=== PATIENT | male | born 1990 | race Caucasian/White ===

== ENCOUNTER 2020-07-16 21:17 | Emergency (ER) | payer SELFPAY ==
[2020-07-16] MEDS ORDERED: Sulfamethoxazole/Trimethoprim 800-160 MG Tab PO ONE (22:30)
[2020-07-16] MEDS ORDERED: Cephalexin 500 MG Cap PO ONE (22:30)
--- NOTE | 2020-07-16 22:35 | EDM.PDOC ---
ED HPI GENERAL MEDICAL PROBLEM - General Chief Complaint: Skin Complaint Stated Complaint: SKIN Time Seen by Provider: 07/16/20 21:20 Source of Information: Reports: Patient History Limitations: Reports: No Limitations - History of Present Illness INITIAL COMMENTS - FREE TEXT/NARRATIVE: History of present illness: [Patient is 30-year-old male who presents with suspected cellulitis. He states that he had what he thought was an ingrown hair along his right lower jawline. He poked it and tried to drain it, then it got bigger and red, he states that the size of it actually has improved, it still drains intermittently, and he reports that his was diagnosed with a MRSA infection and transferred to [facility] for treatment there several days ago] He denies fever or chills, no other systemic symptoms, no trouble swallowing, no throat swelling, no stridor. Review of systems: As per history of present illness and below otherwise all systems reviewed and negative. Past medical history: As per history of present illness and as reviewed below otherwise noncontributory. Surgical history: As per history of present illness and as reviewed below otherwise noncontributory. Social history: No reported history of drug or alcohol abuse. Family history: As per history of present illness and as reviewed below otherwise noncontributory. Physical exam: General: Awake, alert, no acute distress, A&O X3. HEENT: Atraumatic, normocephalic, pupils reactive, negative for conjunctival pallor or scleral icterus, mucous membranes moist, throat clear, neck supple, nontender, trachea midline. Lungs: Clear to auscultation, breath sounds equal bilaterally, chest nontender. Heart: RRR, normal S1S2, no JVD. Abdomen: Soft, nondistended, nontender. Negative for masses or hepatosp lenomegaly. Negative for costovertebral tenderness. Pelvis: Stable nontender. Genitourinary: Deferred. Rectal: Deferred. SKIN: Area of induration along the right lower jawline measuring about 4 x 4 cm with a central lesion that is open. No underlying fluctuance. No active purulent drainage. No associated lymphadenopathy, no evidence for Kathrin's angina, no stridor, no trouble swallowing. Extremities: Atraumatic, no edema, Neurovascular unremarkable. Neuro: Motor and sensory grossly intact throughout. Exam nonfocal. Diagnostics: [] Therapeutics: [] Impression: [] Plan: [] Definitive disposition and diagnosis as appropriate pending reevaluation and review of above. - Related Data Allergies Allergy/AdvReac Type Severity Reaction Status Date / Time bee venom protein (honey bee) Allergy Swelling Verified 07/16/20 21:36 Home Meds: Home Meds Sulfamethoxazole/Trimethoprim [Bactrim Ds Tablet] 1 each PO BID #14 tablet 07/16/20 [Rx] cephALEXin [Keflex] 500 mg PO Q6H #28 capsule 07/16/20 [Rx] Past Medical History - Infectious Disease History Infectious Disease History: Reports: Chicken Pox - Past Surgical History GI Surgical History: Reports: Appendectomy Social & Family History - Family History Family Medical History: Noncontributory - Caffeine Use Caffeine Use: Reports: Coffee, Soda - Recreational Drug Use Recreational Drug Use: No ED ROS GENERAL - Review of Systems Review Of Systems: Comprehensive ROS is negative, except as noted in HPI. ED EXAM, SKIN/RASH Exam: See Below (see h and p) Course - Vital Signs Text/Narrative:: Patient with evidence of a mild cellulitis of the face. He received antibiotics here and sent a prescription to his pharmacy to take for the next week. Patient is tachycardic but he otherwise well-appearing, nontoxic, tolerating oral secretions, no evidence for Hussein's angina, return precautions provided, otherwise patient is agreeable to plan and stable at discharge. Last Recorded V/S: Last Vital Signs Temp 36.4 C 07/16/20 21:37 Pulse 110 H 07/16/20 22:52 Resp 16 07/16/20 22:52 BP 133/91 H 07/16/20 22:52 Pulse Ox 95 07/16/20 22:52 - Orders/Labs/Meds Meds: Medications Discontinued Medications Generic Name Dose Route Start Last Admin Trade Name Freq PRN Reason Stop Dose Admin Cephalexin 500 mg 07/16/20 22:30 07/16/20 22:47 Keflex PO 07/16/20 22:31 500 mg ONETIME ONE Administration Trimethoprim/Sulfamethoxazole 1 tab 07/16/20 22:30 07/16/20 22:47 Septra Ds PO 07/16/20 22:31 1 tab ONETIME ONE Administration Departure - Departure Time of Disposition: 22:35 Disposition: Home, Self-Care 01 Condition: Good Clinical Impression: Cellulitis - Discharge Information Prescriptions: Sulfamethoxazole/Trimethoprim [Bactrim Ds Tablet] 1 each PO BID #14 tablet cephALEXin [Keflex] 500 mg PO Q6H #28 capsule Instructions: Cellulitis, Adult Referrals: PCP,None [Primary Care Provider] - Forms: ED Department Discharge Additional Instructions: Follow-up with primary care doctor. Take all medications as prescribed. Return to the ER with any new or worsening symptoms. The following information is given to patients seen in the emergency department who are being discharged to home. This information is to outline your options for follow-up care. We provide all patients seen in our emergency department with a follow-up referral. The need for follow-up, as well as the timing and circumstances, are variable depending upon the specifics of your emergency department visit. If you don't have a primary care physician on staff, we will provide you with a referral. We always advise you to contact your personal physician following an emergency department visit to inform them of the circumstance of the visit and for follow-up with them and/or the need for any referrals to a consulting specialist. The emergency department will also refer you to a specialist when appropriate. This referral assures that you have the opportunity for follow-up care with a specialist. All of these measure are taken in an effort to provide you with optimal care, which includes your follow-up. Under all circumstances we always encourage you to contact your private physician who remains a resource for coordinating your care. When calling for follow-up care, please make the office aware that this follow-up is from your recent emergency room visit. If for any reason you are refused follow-up, please contact the [facility] Emergency Department at and asked to speak to the emergency department charge nurse. Sepsis Event Note (ED) - Evaluation Sepsis Screening Result: No Definite Risk - Focused Exam Vital Signs: Vital Signs Temp Pulse Resp BP Pulse Ox 07/16/20 22:52 110 H 16 133/91 H 95 07/16/20 21:42 147/90 H 07/16/20 21:37 36.4 C 126 H 17 93 L
== END 2020-07-16 22:55 | disposition home or self-care (01) ==
LOC: MW.ED 21:17
DX: L03.211 Cellulitis of face (principal); Z91.030 Bee allergy status
CPT/HCPCS: 99283; A9270; 99282

== ENCOUNTER 2021-05-16 21:07 | Emergency (ER) | payer OTHER ==
--- NOTE | 2021-05-16 22:49 | EDM.PDOC ---
ED HPI GENERAL MEDICAL PROBLEM - General Stated Complaint: RED BUMP ON BACK OF HEAD Time Seen by Provider: 05/16/21 22:00 - History of Present Illness INITIAL COMMENTS - FREE TEXT/NARRATIVE: HISTORY AND PHYSICAL: History of present illness: This is a 31-year-old gentleman who presents ER today with a red painful lump to the back of his scalp. Patient reports that his pulled out a bunch of hair follicles from there several days ago and then 2 days ago while he was at work he started developing increasing redness and swelling and pain and drainage from that area. Review of systems: As per history of present illness and below otherwise all systems reviewed and negative. Past medical history: As per history of present illness and as reviewed below otherwise noncontributory. Surgical history: As per history of present illness and as reviewed below otherwise noncontributory. Social history: No reported history of drug abuse. Family history: As per history of present illness and as reviewed below otherwise noncontributory. Physical exam: This patient was seen and evaluated during the 2019 SARS-CoV-2 novel coronavirus pandemic period. Community viral transmission is ongoing at time of this encounter and the emergency department is operating under pandemic response procedures. Constitutional: Patient is oriented to person, place, and time. Appears well- developed and well-nourished. No distress. HEENT: Moist mucous membranes Head: Normocephalic and atraumatic Eyes: Right eye exhibits no discharge. Left eye exhibits no discharge. No scleral icterus Neck: Normal range of motion. No tracheal deviation present. Cardiovascular: Normal rate and regular rhythm. Pulmonary: Effort normal, no respiratory distress. Abdominal: No distention Musculoskeletal: Normal range of motion Neurologic: Alert and oriented to person, place and time. Skin: [place], warm and dry. Psychiatric: Normal mood and affect. Behavior is normal. Judgment and thought content normal. Nursing note and vital signs have been reviewed Patient's physical exam is significant for a small abscess to his posterior scalp near his neck line. There is some gold crusting drainage, it is tender to palpation, it has multiple septate loculations. Diagnostics: [] Therapeutics: [] Assessment and plan: 31-year-old gentleman who presents ER today with likely MRSA infection of the scalp/folliculitis. Patient will get started on Bactrim DS and will be instructed to follow-up with his doctor in 1 week for reevaluation. Definitive disposition and diagnosis as appropriate pending reevaluation and review of above. Right Head Pain Score (Numeric/FACES): 7 - Related Data Allergies Allergy/AdvReac Type Severity Reaction Status Date / Time bee venom protein (honey bee) Allergy Swelling Verified 07/16/20 21:36 Home Meds: Home Meds Sulfamethoxazole/Trimethoprim [Bactrim Ds Tablet] 1 each PO BID #14 tablet 07/16/20 [Rx] cephALEXin [Keflex] 500 mg PO Q6H #28 capsule 07/16/20 [Rx] Sulfamethoxazole/Trimethoprim [Bactrim Ds Tablet] 2 each PO BID #40 tablet 05/16/21 [Rx] Past Medical History - Infectious Disease History Infectious Disease History: Reports: Chicken Pox - Past Surgical History GI Surgical History: Reports: Appendectomy Social & Family History - Family History Family Medical History: No Pertinent Family History - Caffeine Use Caffeine Use: Reports: Coffee, Soda ED ROS GENERAL - Review of Systems Review Of Systems: See Below ED EXAM, GENERAL - Physical Exam Exam: See Below Course - Vital Signs Last Recorded V/S: Last Vital Signs Temp 97.3 F 05/16/21 22:05 Pulse 93 05/16/21 22:05 Resp BP 132/87 05/16/21 22:05 Pulse Ox 96 05/16/21 22:05 - Orders/Labs/Meds Meds: Medications Discontinued Medications Generic Name Dose Route Start Last Admin Trade Name Reggieq PRN Reason Stop Dose Admin Trimethoprim/Sulfamethoxazole 2 tab 05/16/21 22:38 Sulfamethoxazole/Trimethoprim 800-160 Mg Tab PO 05/16/21 22:39 ONETIME ONE Departure - Departure Time of Disposition: 22:47 Disposition: Home, Self-Care 01 Condition: Good Clinical Impression: Cellulitis Qualifiers: Site of cellulitis: head Qualified Code(s): L03.811 - Cellulitis of head [any part, except face] - Discharge Information Instructions: Cellulitis, Adult Referrals: PCP,None [Primary Care Provider] - Additional Instructions: You were seen and evaluated in the ER today secondary cellulitis to your scalp. You will get started on antibiotics for treatment of folliculitis and possible MRSA. You will be given Bactrim DS 2 tablets twice a day for 10 days. Please make an appointment see your doctor in 1 week for reevaluation. The following information is given to patients seen in the emergency department who are being discharged to home. This information is to outline your options for follow-up care. We provide all patients seen in our emergency department with a follow-up referral. The need for follow-up, as well as the timing and circumstances, are variable depending upon the specifics of your emergency department visit. If you don't have a primary care physician on staff, we will provide you with a referral. We always advise you to contact your personal physician following an emergency department visit to inform them of the circumstance of the visit and for follow-up with them and/or the need for any referrals to a consulting specialist. The emergency department will also refer you to a specialist when appropriate. This referral assures that you have the opportunity for follow-up care with a specialist. All of these measure are taken in an effort to provide you with optimal care, which includes your follow-up. Under all circumstances we always encourage you to contact your private physician who remains a resource for coordinating your care. When calling for follow-up care, please make the office aware that this follow-up is from your recent emergency room visit. If for any reason you are refused follow-up, please contact the [facility] Emergency Department at and asked to speak to the emergency department charge nurse. [facility] [address] [place] [address] [facility] [address] [place] [address] Sepsis Event Note (ED) - Evaluation Sepsis Screening Result: No Definite Risk - Focused Exam Vital Signs: Vital Signs Temp Pulse BP Pulse Ox 05/16/21 22:05 97.3 F 93 132/87 96
[2021-05-16] MEDS: Sulfamethoxazole/Trimethoprim 800-160 MG Tab PO ONE (22:57)
== END 2021-05-16 23:05 | disposition home or self-care (01) ==
LOC: MW.ED 21:07
DX: L03.811 Cellulitis of head [any part, except face] (principal); Z91.030 Bee allergy status
CPT/HCPCS: 99283; A9270